=== PATIENT | female | born 1980 | race Two or more races ===

== ENCOUNTER 2022-04-10 11:17 | Inpatient (IN) | payer OTHER ==
[~2022-04-10] VITALS: Ht 157.5 cm; Wt 95.3 kg
[2022-04-10] MEDS ORDERED: FENOFIBRATE50 MG (12:05)
--- NOTE | 2022-04-10 12:13 | NUR ---
PACIENTE ALERTA Y ORIENTADA X3, REFIERE TENER SANGR[place] VAGINAL MENARD BRILLANTE DESDE HACE [place] SEMNAS CON DOLOR PELVICO. SE OBSERVA A PACIENTE PALIDA. SE MONITOREAN VS Y SE UBICA EN DAVID 6
--- NOTE | 2022-04-10 13:03 | NUR ---
PACIENTE EVALUADA POR DRA FANTASMA COATESIEN [place] [facility], RN COLLADO LE ORIENTA A PACIENTE SOBRE EL MISO Y VERBALIZA ENTENDER, LE COLECTA MUESTRAS DE LABORATORIO Y LE CANALIZA BAJO MEDIDAS ASEPTICAS. AREA DE VENOPUNCION PATENTE, ALLISON DE EDEMA Y ERITEMA BAJADO IV FLUIDS AB ORDEN.
[2022-04-11] MEDS ORDERED: DYANAVEL X2.5 MG/1 M (08:19)
[2022-04-11] MEDS ORDERED: LEVOTHYROXINE25 MC1 (08:19)
[2022-04-11] MEDS ORDERED: ROPINIROLE HCL0.5 MG (08:20)
[2022-04-11] MEDS ORDERED: FLUVOXAMINE MA100 MG (08:20)
[2022-04-11] MEDS ORDERED: TRAZODONE HCL150 MG (08:20)
[2022-04-11] MEDS ORDERED: BACLOFEN20 MG (08:20)
[2022-04-11] MEDS ORDERED: PREGABALIN150 MG (08:20)
[2022-04-11] MEDS ORDERED: BUSPIRONE HCL15 MG (08:20)
[2022-04-11] MEDS ORDERED: MICRO-K 1010 MEQ (08:20)
[2022-04-11] MEDS ORDERED: AMANTADINE100 MG (08:20)
[2022-04-11] MEDS ORDERED: FAMOTIDINE40 MG (08:20)
[2022-04-11] MEDS ORDERED: LIOTHYRONINE S25 MCG (08:20)
[2022-04-11] MEDS ORDERED: AMPHETAMINE SAL20 MG (08:20)
[2022-04-11] MEDS ORDERED: PROGESTERONE100 M1 (08:21)
[2022-04-11] MEDS ORDERED: METHYLPHENIDATE20 MG (08:21)
== END 2022-04-13 17:18 | disposition home or self-care (01) | DRG 745 ==
LOC: ER 11:17 → OB/GYN 16:00
PROVIDERS: Student in an Organized Health Care Education/Training Program; ADMIT Obstetrics & Gynecology; ATTEND Obstetrics & Gynecology
PROC: 30233N1 Transfusion of Nonautologous Red Blood Cells into Peripheral Vein, Percutaneous Approach (ICD-10-PCS; 2022-04-11)
PROC: 0UDB8ZZ Extraction of Endometrium, Via Natural or Artificial Opening Endoscopic (ICD-10-PCS; principal; 2022-04-13 09:30)
DX: N72 Inflammatory disease of cervix uteri (principal); Z20.822 Contact with and (suspected) exposure to COVID-19; D50.0 Iron deficiency anemia secondary to blood loss (chronic); N39.8 Other specified disorders of urinary system; E66.01 Morbid (severe) obesity due to excess calories